=== PATIENT | female | born 1945 | race Hispanic/Latino ===

== ENCOUNTER 2022-08-03 00:05 | Emergency (ER) | payer MEDICARE, OTHER ==
[~2022-08-03] VITALS: Ht 167.6 cm; Wt 104.3 kg
[~2022-08-03 00:05] MED LIST: ALLEGRA ALLERG180 MG PO; AMITIZA24 MCG PO; ATACAND8 MG PO; MAGNESIUM400 MG PO; NEXIUM40 MG PO; SUCRALFATE1 GM PO; SYNTHROID150 MCG PO; VITAMIN D-32000 UNIT PO; XALATAN2.5 ML
[2022-08-03] MEDS ORDERED: AZITHROMYCIN250 MG PO (00:56)
== END 2022-08-03 02:48 | disposition home or self-care (01) ==
LOC: ER 00:10
DX: R51.9 Headache, unspecified (principal); J32.9 Chronic sinusitis, unspecified; Z20.822 Contact with and (suspected) exposure to COVID-19
CPT/HCPCS: 99283; U0002

== ENCOUNTER 2024-06-24 14:46 | Emergency (ER) | payer MEDICARE, OTHER ==
[~2024-06-24] VITALS: Ht 167.6 cm; Wt 104.3 kg
[~2024-06-24 14:46] MED LIST changes: +AZITHROMYCIN250 MG PO
[2024-06-24 16:00] VITALS: PULSE 89; RESP 16; TEMP 98.2; O2SAT 100
[2024-06-24] MEDS ORDERED: SODIUM CHLORIDE FLUSH 10 ML SYR IV PRN (17:00)
== END 2024-06-24 17:18 | disposition home or self-care (01) ==
LOC: ER 16:11
DX: H92.03 Otalgia, bilateral (principal); R09.81 Nasal congestion; R51.9 Headache, unspecified; I10 Essential (primary) hypertension; E03.9 Hypothyroidism, unspecified; H40.9 Unspecified glaucoma; Z85.828 Personal history of other malignant neoplasm of skin
CPT/HCPCS: 99282

== ENCOUNTER 2024-11-18 20:11 | Inpatient (IN) | payer MEDICARE ==
[~2024-11-18] VITALS: Ht 167.6 cm; Wt 104.3 kg
[2024-11-18 20:30] VITALS: PULSE 74; RESP 14; TEMP 98.6
[2024-11-18 21:36] LABS: BASOPHILS # (AUTO) 0.1 (0.0-0.1); BASOPHILS % 0.8 % (0.0-1.0); EOSINOPHILS # (AUTO) 0.2 (0.0-0.4); EOSINOPHILS % 2.1 % (0.0-6.0); HEMATOCRIT 38.5 % (34.2-44.1); HEMOGLOBIN 12.1 g/dL (12.0-16.0); LYMPHOCYTES # (AUTO) 1.6 (1.0-3.2); LYMPHOCYTES % 18.4 % (18.0-39.1); MEAN CORPUSCULAR HEMOGLOBIN 27.8 pg (28-32); MEAN CORPUSCULAR HGB CONC 31.4 g/dL (31-35); MEAN CORPUSCULAR VOLUME 88.5 fL (81-99); MONOCYTES # (AUTO) 0.7 (0.2-0.8); MONOCYTES % 8.1 % (4.4-11.3); NEUTROPHILS # (AUTO) 5.9 (2.1-6.9); NEUTROPHILS % 70.1 % (38.7-80.0); PLATELET COUNT 214 x10e3/uL (140-360); RED BLOOD COUNT 4.35 x10e6/uL (3.6-5.1); RED CELL DISTRIBUTION WIDTH 13.4 % (11.7-14.4); WHITE BLOOD COUNT 8.44 x10e3/uL (4.8-10.8)
[2024-11-18 21:37] LABS: CLARITY,URINE CLEAR (CLEAR); COLOR,URINE YELLOW (YELLOW)
[2024-11-18 21:38] LABS: ALBUMIN 3.7 g/dL (3.5-5.0); ALBUMIN/GLOBULIN RATIO 1.2 (0.8-2.0); ANION GAP 15.2 mmol/L (8-16); BILIRUBIN,TOTAL 0.2 mg/dL (0.2-1.2); BILIRUBIN,URINE NEGATIVE (NEGATIVE); CALCIUM 9.5 mg/dL (8.4-10.2); CREATININE, SERUM 0.73 mg/dL (0.57-1.11); GLUCOSE, URINE NEGATIVE (NEGATIVE); KETONES,URINE NEGATIVE (NEGATIVE); LEUKOCYTE ESTERASE ,URINE NEGATIVE (NEGATIVE); NITRITE,URINE NEGATIVE (NEGATIVE); PH,URINE 7 (5 - 7); POTASSIUM 4.2 mmol/L (3.5-5.1); PROTEIN,URINE DIPSTICK NEGATIVE (NEGATIVE); TOTAL PROTEIN 6.7 g/dL (6.5-8.1); URINE UROBILINOGEN 0.2 mg/dL (0.2 - 1)
[2024-11-18 21:39] LABS: RBC,URINE 0-5 /HPF (0-5); WBC,URINE (MAN) 0-5 /HPF (0-5)
[2024-11-18 21:40] LABS: EPITHELIAL CELLS,URINE RARE /LPF
[2024-11-19] VITALS (11 sets, daily range): BP systolic 137–154; BP diastolic 64–73; PULSE 71–89; RESP 16–20; TEMP 97.6–98.2; O2SAT 95–99
[2024-11-19] MEDS: CEFTRIAXONE 2 GM in SODIUM CHLORIDE 0.9% 100 ML IV SCH (00:45)
[2024-11-19] MEDS ORDERED: ONDANSETRON HCL INJ 2MG/ML 2ML 2 MG/ML VIAL IV PRN (00:45)
[2024-11-19] MEDS ORDERED: HYDRALAZINE HCL 20 MG/ML VIAL IV PRN (00:45)
[2024-11-19] MEDS ORDERED: SODIUM CHLORIDE FLUSH 10 ML SYR INJ PRN (00:45)
[2024-11-19] MEDS: HYDRALAZINE HCL 20 MG/ML VIAL IV STA (00:59)
[2024-11-19] MEDS: ACETAMINOPHEN 325 MG TAB PO PRN (01:35)
[2024-11-19 09:30] LABS: TROPONIN I 0.03 ng/mL (0-0.300)
[2024-11-19] MEDS ORDERED: NEXIUM40 MG PO (10:29)
[2024-11-19] MEDS ORDERED: POLYETHYLENE GLYCOL 3350 17 GM PACK PO PRN (19:45)
[2024-11-19] MEDS: LATANOPROST(OPTH) 2.5 ML BTL OU SCH (21:00)
[2024-11-19] MEDS: CANDESARTAN CILEXETIL 16 MG TAB PO SCH (21:20)
[2024-11-19] MEDS: LEVOFLOXACIN 500MG/D5W 100ML 100 ML IV SCH (21:29)
[2024-11-19] MEDS: PANTOPRAZOLE SOD 40 MG TABEC PO SCH (21:29)
[2024-11-20] VITALS (13 sets, daily range): BP systolic 121–160; BP diastolic 56–86; PULSE 75–98; RESP 17–20; TEMP 97.8–98.1; O2SAT 96–100
[2024-11-20] MEDS: LEVOTHYROXINE SODIUM 75 MCG TAB PO SCH (07:05)
[2024-11-20 08:47] LABS: BASOPHILS # (AUTO) 0.1 (0.0-0.1); BASOPHILS % 0.7 % (0.0-1.0); EOSINOPHILS # (AUTO) 0.1 (0.0-0.4); EOSINOPHILS % 1.8 % (0.0-6.0); HEMATOCRIT 41.1 % (34.2-44.1); HEMOGLOBIN 13.1 g/dL (12.0-16.0); LYMPHOCYTES # (AUTO) 1.5 (1.0-3.2); MEAN CORPUSCULAR HEMOGLOBIN 27.6 pg (28-32); MEAN CORPUSCULAR HGB CONC 31.9 g/dL (31-35); MEAN CORPUSCULAR VOLUME 86.7 fL (81-99); MONOCYTES # (AUTO) 0.6 (0.2-0.8); MONOCYTES % 7.6 % (4.4-11.3); NEUTROPHILS # (AUTO) 5.1 (2.1-6.9); NEUTROPHILS % 69.2 % (38.7-80.0); PLATELET COUNT 237 x10e3/uL (140-360); RED BLOOD COUNT 4.74 x10e6/uL (3.6-5.1); RED CELL DISTRIBUTION WIDTH 13.7 % (11.7-14.4); WHITE BLOOD COUNT 7.36 x10e3/uL (4.8-10.8)
[2024-11-20] MEDS ORDERED: CANDESARTAN CILEXETIL 16 MG TAB PO SCH (09:00)
[2024-11-20 09:14] LABS: CHOL/HDL RATIO 3.8 (3.0-3.6); MAGNESIUM 2.1 MG/DL (1.3-2.1); PHOSPHORUS 3.1 MG/DL (2.3-4.7)
[2024-11-20 09:16] LABS: ALBUMIN 3.9 g/dL (3.5-5.0); ALBUMIN/GLOBULIN RATIO 1.2 (0.8-2.0); BILIRUBIN,TOTAL 0.5 mg/dL (0.2-1.2); CALCIUM 9.4 mg/dL (8.4-10.2); CREATININE, SERUM 0.65 mg/dL (0.57-1.11); TOTAL PROTEIN 7.1 g/dL (6.5-8.1)
[2024-11-20 09:19] LABS: TROPONIN I 0.035 ng/mL (0-0.300)
[2024-11-20] MEDS: DOCUSATE SODIUM 100 MG CAP PO SCH (09:28)
[2024-11-20 09:33] LABS: FREE T4 (FREE THYROXINE) 1.08 ng/dL (0.8-1.8); THYROID STIMULATING HORMONE 8.56 uIU/mL (0.350-4.940)
[2024-11-20] MEDS: LEVOTHYROXINE SODIUM 25 MCG TABLET PO SCH (11:49)
[2024-11-21] VITALS (9 sets, daily range): BP systolic 134–158; BP diastolic 63–92; PULSE 71–92; RESP 18–20; TEMP 97.7–98.4; O2SAT 96–99
[2024-11-21 06:49] LABS: TROPONIN I 0.028 ng/mL (0-0.300)
[2024-11-21] MEDS ORDERED: ONDANSETRON ODT4 MG PO (20:01)
[2024-11-21] MEDS ORDERED: ACETAMINOPHEN325 M1 PO (20:01)
[2024-11-22 00:38] VITALS: BP 125/74; PULSE 81; RESP 18; TEMP 97.2; O2SAT 98
[2024-11-22 06:06] LABS: BASOPHILS # (AUTO) 0.1 (0.0-0.1); BASOPHILS % 0.7 % (0.0-1.0); EOSINOPHILS # (AUTO) 0.2 (0.0-0.4); EOSINOPHILS % 2.1 % (0.0-6.0); HEMOGLOBIN 11.5 g/dL (12.0-16.0); LYMPHOCYTES # (AUTO) 1.5 (1.0-3.2); LYMPHOCYTES % 18.3 % (18.0-39.1); MEAN CORPUSCULAR HEMOGLOBIN 27.6 pg (28-32); MEAN CORPUSCULAR HGB CONC 31.9 g/dL (31-35); MEAN CORPUSCULAR VOLUME 86.3 fL (81-99); MONOCYTES # (AUTO) 0.7 (0.2-0.8); MONOCYTES % 8.7 % (4.4-11.3); NEUTROPHILS # (AUTO) 5.6 (2.1-6.9); NEUTROPHILS % 69.6 % (38.7-80.0); PLATELET COUNT 197 x10e3/uL (140-360); RED BLOOD COUNT 4.17 x10e6/uL (3.6-5.1); RED CELL DISTRIBUTION WIDTH 13.6 % (11.7-14.4); WHITE BLOOD COUNT 8.08 x10e3/uL (4.8-10.8)
[2024-11-22 06:35] LABS: ANION GAP 13.8 mmol/L (8-16); CALCIUM 9.1 mg/dL (8.4-10.2); CREATININE, SERUM 0.67 mg/dL (0.57-1.11); MAGNESIUM 1.9 MG/DL (1.3-2.1); POTASSIUM 3.8 mmol/L (3.5-5.1)
[2024-11-22 06:41] VITALS: BP 134/76; PULSE 73; RESP 16; TEMP 97.5; O2SAT 97
[2024-11-22 08:00] VITALS: BP 134/76; PULSE 73; RESP 16; TEMP 97.5; O2SAT 97
[2024-11-22 09:00] VITALS: PULSE 94; RESP 16; O2SAT 96
[2024-11-22 09:16] VITALS: BP 171/72; PULSE 81; RESP 18; TEMP 97.6; O2SAT 100
[2024-11-22 13:39] VITALS: BP 150/81; PULSE 94; RESP 20; TEMP 98; O2SAT 99
[2024-11-22] MEDS ORDERED: ONDANSETRON HCL 4 MG ORAL DISINTEGRATING TAB PO PRN (14:15)
[2024-11-22] MEDS ORDERED: LEVOFLOXACIN 500 MG TAB PO SCH (21:00)
== END 2024-11-22 14:00 | disposition home or self-care (01) | DRG 195 ==
LOC: ER 21:18 → ERHOLD 11-19 02:31 → MED/SURG2 11-19 02:42
PROVIDERS: ADMIT Internal Medicine; ATTEND Internal Medicine
DX: J18.9 Pneumonia, unspecified organism (principal); R55 Syncope and collapse; R42 Dizziness and giddiness; R53.1 Weakness; I10 Essential (primary) hypertension; E03.9 Hypothyroidism, unspecified; I87.2 Venous insufficiency (chronic) (peripheral); D50.9 Iron deficiency anemia, unspecified; M17.0 Bilateral primary osteoarthritis of knee; J32.9 Chronic sinusitis, unspecified; H91.90 Unspecified hearing loss, unspecified ear; H40.9 Unspecified glaucoma; Z71.3 Dietary counseling and surveillance; Z68.37 Body mass index [BMI] 37.0-37.9, adult; Z71.81 Spiritual or religious counseling; Z85.828 Personal history of other malignant neoplasm of skin; Z91.81 History of falling; Z88.1 Allergy status to other antibiotic agents; Z88.5 Allergy status to narcotic agent; Z88.0 Allergy status to penicillin; Z88.8 Allergy status to other drugs, medicaments and biological substances
CPT/HCPCS: 36415; 70450; 71045; 80048; 80053; 80061; 81001; 82550; 82948; 83036; 83735; 84100; 84439; 84443; 84484; 85025; 87040; 93005; 93306; 93880; 94799; 99284; J0360; J1956; J2470; J7050

== ENCOUNTER 2024-12-01 00:41 | Emergency (ER) | payer MEDICARE ==
[~2024-12-01] VITALS: Ht 167.6 cm; Wt 104.3 kg
[~2024-12-01 00:41] MED LIST changes: +ACETAMINOPHEN325 M1 PO; +ONDANSETRON ODT4 MG PO
[2024-12-01 00:45] VITALS: PULSE 73; RESP 17; TEMP 98
[2024-12-01] MEDS: DIPHENHYDRAMINE HCL INJ 50 MG/ML VIAL IV STA (01:18)
[2024-12-01] MEDS: METOCLOPRAMIDE HCL 10 MG/2ML VIAL IV STA (01:18)
[2024-12-01] MEDS: METHYLPREDNISOLONE SOD SUCC 125 MG/2ML VIAL IV STA (01:19)
[2024-12-01] MEDS: KETOROLAC TROMETHAMINE 30 MG/ML VIAL IV STA (01:19)
[2024-12-01] MEDS: SODIUM CHLORIDE 0.9% 1000ML 1,000 ML IV STA (01:19)
[2024-12-01 01:44] LABS: BASOPHILS # (AUTO) 0.1 (0.0-0.1); BASOPHILS % 0.5 % (0.0-1.0); EOSINOPHILS # (AUTO) 0.1 (0.0-0.4); EOSINOPHILS % 0.7 % (0.0-6.0); HEMATOCRIT 35.9 % (34.2-44.1); HEMOGLOBIN 11.9 g/dL (12.0-16.0); LYMPHOCYTES # (AUTO) 1.7 (1.0-3.2); LYMPHOCYTES % 16.9 % (18.0-39.1); MEAN CORPUSCULAR HEMOGLOBIN 28.4 pg (28-32); MEAN CORPUSCULAR HGB CONC 33.1 g/dL (31-35); MEAN CORPUSCULAR VOLUME 85.7 fL (81-99); MONOCYTES # (AUTO) 0.7 (0.2-0.8); MONOCYTES % 7.1 % (4.4-11.3); NEUTROPHILS # (AUTO) 7.7 (2.1-6.9); NEUTROPHILS % 74.2 % (38.7-80.0); PLATELET COUNT 201 x10e3/uL (140-360); RED BLOOD COUNT 4.19 x10e6/uL (3.6-5.1); RED CELL DISTRIBUTION WIDTH 13.8 % (11.7-14.4); WHITE BLOOD COUNT 10.32 x10e3/uL (4.8-10.8)
[2024-12-01 01:51] LABS: CLARITY,URINE CLEAR (CLEAR); COLOR,URINE YELLOW (YELLOW); LEUKOCYTE ESTERASE ,URINE NEGATIVE (NEGATIVE); PH,URINE 7 (5 - 7)
[2024-12-01 01:52] LABS: BILIRUBIN,URINE NEGATIVE (NEGATIVE); GLUCOSE, URINE NEGATIVE (NEGATIVE); KETONES,URINE NEGATIVE (NEGATIVE); NITRITE,URINE NEGATIVE (NEGATIVE); PROTEIN,URINE DIPSTICK NEGATIVE (NEGATIVE); URINE UROBILINOGEN 0.2 mg/dL (0.2 - 1)
[2024-12-01 01:55] LABS: BACTERIA,URINE FEW /HPF; EPITHELIAL CELLS,URINE FEW /LPF; RBC,URINE 0-5 /HPF (0-5); WBC,URINE (MAN) 0-5 /HPF (0-5)
[2024-12-01 02:02] LABS: ALBUMIN 3.9 g/dL (3.5-5.0); ALBUMIN/GLOBULIN RATIO 1.3 (0.8-2.0); ANION GAP 14.9 mmol/L (8-16); BILIRUBIN,TOTAL 0.3 mg/dL (0.2-1.2); CALCIUM 9.3 mg/dL (8.4-10.2); CREATININE, SERUM 0.67 mg/dL (0.57-1.11); POTASSIUM 3.9 mmol/L (3.5-5.1); TOTAL PROTEIN 6.9 g/dL (6.5-8.1)
[2024-12-01 03:02] VITALS: BP 109/97; PULSE 72; RESP 14; TEMP 97.7; O2SAT 97
[2024-12-01] MEDS ORDERED: FIORICET 50-301 EACH PO (03:04)
== END 2024-12-01 03:10 | disposition home or self-care (01) ==
LOC: ER 00:45
DX: R51.9 Headache, unspecified (principal); H92.01 Otalgia, right ear; I10 Essential (primary) hypertension; E03.9 Hypothyroidism, unspecified; H40.9 Unspecified glaucoma; Z85.828 Personal history of other malignant neoplasm of skin
CPT/HCPCS: 36415; 70450; 80053; 81001; 85025; 99284; J1200; J1885; J2765; J2919; J7030

== ENCOUNTER 2024-12-12 22:42 | Emergency (ER) | payer MEDICARE ==
[~2024-12-12] VITALS: Ht 167.6 cm; Wt 104.3 kg
[~2024-12-12 22:42] MED LIST changes: +FIORICET 50-301 EACH PO
[2024-12-12 23:14] LABS: BASOPHILS % 0.5 % (0.0-1.0); EOSINOPHILS # (AUTO) 0.1 (0.0-0.4); EOSINOPHILS % 1.4 % (0.0-6.0); HEMOGLOBIN 11.9 g/dL (12.0-16.0); LYMPHOCYTES # (AUTO) 1.6 (1.0-3.2); LYMPHOCYTES % 20.6 % (18.0-39.1); MEAN CORPUSCULAR HGB CONC 32.2 g/dL (31-35); MEAN CORPUSCULAR VOLUME 87.1 fL (81-99); MONOCYTES # (AUTO) 0.8 (0.2-0.8); MONOCYTES % 9.8 % (4.4-11.3); NEUTROPHILS # (AUTO) 5.2 (2.1-6.9); NEUTROPHILS % 67.2 % (38.7-80.0); PLATELET COUNT 171 x10e3/uL (140-360); RED BLOOD COUNT 4.25 x10e6/uL (3.6-5.1); RED CELL DISTRIBUTION WIDTH 14.5 % (11.7-14.4); WHITE BLOOD COUNT 7.75 x10e3/uL (4.8-10.8)
[2024-12-12] MEDS: SODIUM CHLORIDE 0.9% 1000ML 2,000 ML IV STA (23:23)
[2024-12-12] MEDS ORDERED: ONDANSETRON HCL INJ 2MG/ML 2ML 2 MG/ML VIAL ONE (23:28)
[2024-12-12 23:36] LABS: ALBUMIN 3.7 g/dL (3.5-5.0); ALBUMIN/GLOBULIN RATIO 1.2 (0.8-2.0); BILIRUBIN,TOTAL 0.2 mg/dL (0.2-1.2); CREATININE, SERUM 0.68 mg/dL (0.57-1.11); TOTAL PROTEIN 6.8 g/dL (6.5-8.1)
[2024-12-12] MEDS: ONDANSETRON HCL INJ 2MG/ML 2ML 2 MG/ML VIAL IV STA (23:39)
[2024-12-12 23:41] LABS: TROPONIN I 0.004 ng/mL (0-0.300)
[2024-12-12 23:41] LABS: CORONAVIRUS COVID-19 AG NEGATIVE (NEGATIVE); INFLUENZA A AG NEGATIVE (NEGATIVE); INFLUENZA B AG NEGATIVE (NEGATIVE)
[2024-12-13] MEDS: LIDOCAINE VISC 2% SOLN 15 ML UDC PO STA (00:31)
[2024-12-13] MEDS: BELLADONNA ALK/PHENOBARBITAL 5 ML UDC PO ONE (00:31)
[2024-12-13] MEDS: MAGNESIUM/ALUMINUM/SIMETHICONE 30 ML UDC PO STA (00:31)
[2024-12-13 01:19] LABS: CLARITY,URINE CLEAR (CLEAR); COLOR,URINE YELLOW (YELLOW); GLUCOSE, URINE NEGATIVE (NEGATIVE); KETONES,URINE NEGATIVE (NEGATIVE); LEUKOCYTE ESTERASE ,URINE NEGATIVE (NEGATIVE); NITRITE,URINE NEGATIVE (NEGATIVE); PH,URINE 7 (5 - 7); PROTEIN,URINE DIPSTICK NEGATIVE (NEGATIVE)
[2024-12-13 01:20] LABS: AMPHETAMINES SCREEN,URINE NEGATIVE (NEGATIVE); BENZODIAZEPINES SCREEN,URINE NEGATIVE (NEGATIVE); BILIRUBIN,URINE NEGATIVE (NEGATIVE); CANNABINOIDS SCREEN,URINE NEGATIVE (NEGATIVE); COCAINE SCREEN,URINE NEGATIVE (NEGATIVE); METHADONE SCREEN, URINE NEGATIVE (NEGATIVE); OPIATES SCREEN,URINE NEGATIVE (NEGATIVE); PHENCYCLIDINE SCREEN,URINE NEGATIVE (NEGATIVE); URINE UROBILINOGEN 0.2 mg/dL (0.2 - 1)
[2024-12-13] MEDS: HYDRALAZINE HCL 20 MG/ML VIAL IV STA (01:28)
[2024-12-13 01:30] LABS: BACTERIA,URINE MODERATE /HPF; EPITHELIAL CELLS,URINE FEW /LPF; RBC,URINE 0-5 /HPF (0-5); WBC,URINE (MAN) 0-5 /HPF (0-5)
[2024-12-13 01:33] VITALS: BP 162/73
[2024-12-13 01:58] VITALS: PULSE 78; RESP 17; TEMP 97.9; O2SAT 100
== END 2024-12-13 02:00 | disposition home or self-care (01) ==
LOC: ER 12-13 00:08
DX: R10.13 Epigastric pain (principal); R53.1 Weakness; E87.1 Hypo-osmolality and hyponatremia; I10 Essential (primary) hypertension; E03.9 Hypothyroidism, unspecified; H40.9 Unspecified glaucoma; E66.9 Obesity, unspecified; R94.31 Abnormal electrocardiogram [ECG] [EKG]; Z85.828 Personal history of other malignant neoplasm of skin
CPT/HCPCS: 36415; 70450; 71045; 80053; 80307; 80320; 81001; 82550; 83880; 84484; 85025; 87428; 93005; 99284; J0360; J2405; J7030